=== PATIENT | male | born 1975 | race Two or more races ===

== ENCOUNTER 2019-12-27 18:51 | Emergency (ER) | payer OTHER ==
[~2019-12-27] VITALS: Ht 177.8 cm; Wt 65.8 kg
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
[2019-12-27 19:33] VITALS: BP 128/78
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
[2019-12-27] MEDS ORDERED: Ketorolac 30mg Inj ONE (19:35)
[2019-12-27] MEDS ORDERED: Ketorolac 30mg Inj IV ONE (19:45)
[2019-12-27 19:56] LABS: BASOPHILS % (AUTO) 1.4 % (0.0-2.0); HEMATOCRIT 50.4 % (42.0-52.0); HEMOGLOBIN 16.1 G/DL (14.2-18.0); MEAN CORPUSCULAR VOLUME 96 FL (80-99); MONOCYTES % (AUTO) 7.2 % (1.0-10.0); NEUTROPHILS % (AUTO) 55.5 % (45.0-75.0); PLATELET COUNT 247 K/UL (150-450); RED BLOOD COUNT 5.27 M/UL (4.70-6.10); RED CELL DISTRIBUTION WIDTH 13.6 % (11.6-14.8); WHITE BLOOD COUNT 5.7 K/UL (4.8-10.8)
[2019-12-27 20:02] LABS: ANION GAP 5 mmol/L (5-15); BLOOD UREA NITROGEN 16 mg/dL (7-18); CALCIUM 8.8 MG/DL (8.5-10.1); CARBON DIOXIDE 30 MMOL/L (21-32); CHLORIDE 101 MMOL/L (98-107); CREATININE 1.4 MG/DL (0.55-1.30); POTASSIUM 3.6 MMOL/L (3.5-5.1); SODIUM 136 MMOL/L (136-145)
[2019-12-27 20:07] LABS: ALANINE AMINOTRANSFERASE 36 U/L (12-78); ALBUMIN 3.9 G/DL (3.4-5.0); ALBUMIN/GLOBULIN RATIO 1.2 (1.0-2.7); ALKALINE PHOSPHATASE 59 U/L (46-116); ASPARTATE AMINO TRANSFERASE 21 U/L (15-37); BILIRUBIN,TOTAL 0.8 MG/DL (0.2-1.0)
[2019-12-27 21:30] VITALS: BP 131/72
[2019-12-27] MEDS ORDERED: AUGMENTIN 875-1 EAC1 ORAL (22:18)
[2019-12-27] MEDS ORDERED: NORCO 5-325 TA1 EAC1 ORAL (22:28)
[2019-12-27] MEDS ORDERED: IBUPROFEN600 M1 ORAL (22:28)
[2019-12-27] MEDS ORDERED: Augmentin 875mg Tab ORAL ONE (22:30)
[2019-12-27] MEDS ORDERED: HYDROcodone/Acetamin 7.5/325 tab ONE (22:39)
[2019-12-27] MEDS ORDERED: HYDROcodone/Acetamin 7.5/325 tab ORAL ONE (22:45)
[2019-12-27 22:47] VITALS: BP 131/81
== END 2019-12-27 22:45 | disposition home or self-care (01) ==
LOC: EDBD 18:51 → EMR 19:05
DX: S02.842A Fracture of lateral orbital wall, left side, initial encounter for closed fracture (principal); S02.19XA Other fracture of base of skull, initial encounter for closed fracture; S02.2XXA Fracture of nasal bones, initial encounter for closed fracture; T14.8XXA Other injury of unspecified body region, initial encounter; F15.90 Other stimulant use, unspecified, uncomplicated; F14.90 Cocaine use, unspecified, uncomplicated
CPT/HCPCS: 36415; 70450; 70486; 80053; 80307; 84484; 85025; 85610; 85730; 96361; 96374; 96375; G0480; J1885; J2405; J7030; Z7502; 99284